=== PATIENT | female | born 1980 | race Caucasian/White ===

== ENCOUNTER 2017-03-13 19:38 | Emergency (ER) | payer OTHER ==
[2017-03-13] MEDS ORDERED: Albuterol/Ipratropium NEB.SOL* Albuterol 2.5 MG/Ipratropium 0.5 MG 3 ML INH ONE (19:59)
--- NOTE | 2017-03-13 20:03 | ED ---
Respiratory - HPI Summary HPI Summary: 36-year-old female presents with shortness of breath for 2 days she admits to a productive cough. She has occasional chest pain with the cough. She denies any abdominal pain muscle fatigue. She has been having subjective fevers but she's been taking ibuprofen for. She denies any nausea or vomiting. She denies any sore throat congestion or ear pain. she denies any headache. History of von Willebrand's and no one is sick at home. She gets bronchitis once a year and normal gets a zpack. She denies any pain or swelling in her calf muscles. - History of Current Complaint Chief Complaint: EDUpperRespComplaint Stated Complaint: COUGH/WHEEZING Time Seen by Provider: 03/13/17 19:47 Pain Intensity: 0 - Allergy/Home Medications Allergies/Adverse Reactions: Allergies Allergy/AdvReac Type Severity Reaction Status Date / Time NSAIDs Allergy Severe Bleeding Verified 10/25/15 07:52 PMH/Surg Hx/FS Hx/Imm Hx Endocrine/Hematology History: Denies: Hx Anticoagulant Therapy - But offers history of vonWillebrand's, Hx Diabetes, Hx Thyroid Disease Cardiovascular History: Denies: Hx Hypertension Respiratory History: Denies: Hx Asthma, Hx Chronic Obstructive Pulmonary Disease (COPD) GI History: Denies: Hx Ulcer - Cancer History Cancer Type, Location and Year: Cervical Cancer 2003 - Surgical History Surgery Procedure, Year, and Place: appy. shoulder. eye nerve repair. T&A. tubes in ears. Infectious Disease History: No Infectious Disease History: Denies: Hx Clostridium Difficile, Hx Hepatitis, Hx Human Immunodeficiency Virus (HIV), Hx of Known/Suspected MRSA, Traveled Outside the [place] in Last 30 Days - Family History Known Family History: Positive: Blood Disorder - Social History Alcohol Use: Occasionally Substance Use Type: Reports: None Smoking Status (MU): Light Every Day Tobacco Smoker Type: Cigarettes Amount Used/How Often: 3 daily Review of Systems Positive: Fever Negative: Chest Pain Positive: Shortness Of Breath, Cough Negative: Abdominal Pain All Other Systems Reviewed And Are Negative: Yes Physical Exam Triage Information Reviewed: Yes Vital Signs On Initial Exam: Initial Vitals Temp Pulse Resp BP Pulse Ox 97.7 F 96 16 119/70 100 03/13/17 19:40 03/13/17 19:40 03/13/17 19:40 03/13/17 19:40 03/13/17 19:40 Vital Signs Reviewed: Yes Appearance: Positive: Well-Appearing Skin: Positive: Warm, Dry Head/Face: Positive: Normal Head/Face Inspection Eyes: Positive: Normal, EOMI, MO, Conjunctiva Clear ENT: Positive: Normal ENT inspection, Pharynx normal, TMs normal Neck: Positive: Supple, Nontender, No Lymphadenopathy Respiratory/Lung Sounds: Positive: Breath Sounds Present, Wheezes Cardiovascular: Positive: Normal, RRR Abdomen Description: Positive: Nontender, Soft Bowel Sounds: Positive: Present Musculoskeletal: Positive: Normal Neurological: Positive: Normal Psychiatric: Positive: Normal Diagnostics - Vital Signs Vital Signs Temp Pulse Resp BP Pulse Ox 03/13/17 19:40 97.7 F 96 16 119/70 100 - Laboratory Lab Statement: Any lab studies that have been ordered have been reviewed, and results considered in the medical decision making process. - Radiology chest Xray Interpretation: No Acute Changes Radiology Interpretation Completed By: Radiologist Re-Evaluation - Re-Evaluation First Eval Re-Evaluation Time: 08:00 Change: Improved Comment: no wheezing heard Disposition - Course Course Of Treatment: 36-year-old female presents with shortness of breath for 2 days she admits to a productive cough. She has occasional chest pain with the cough. She denies any abdominal pain muscle fatigue. She has been having subjective fevers but she's been taking ibuprofen for. She denies any nausea or vomiting. She denies any sore throat congestion or ear pain. she denies any headache. History of von Willebrand's and no one is sick at home. She gets bronchitis once a year and normal gets a zpack. on exam has wheezes present. chest xray normal. will treat with prednisone and inhaler. patient understand and agrees with plan. - Differential Dx - Cardiopulmonary Differential Diagnoses - Cardiopulmonary: Bronchitis, Influenza, Lower Resp Infection - Diagnoses Provider Diagnoses: Bronchitis Discharge - Discharge Plan Condition: Good Disposition: HOME Prescriptions: Levalbuterol HFA INHALER* [Xopenex Hfa Inhaler*] 1 puff INH Q4H PRN #1 mdi PRN Reason: Shortness Of Breath predniSONE TAB* [Deltasone TAB*] 50 mg PO DAILY #4 tab Patient Education Materials: Acute Bronchitis (ED) Referrals: Non Staff,Doctor [Primary Care Provider] - Additional Instructions: Use inhaler one puff every 4 hours for cough as needed Take steroid once a day for 5 days Use saline in the nose for nasal congestion Use humidifier or place warm bowls of water around the room for cough Cough can last up to 4 weeks Follow up with primary care physician in 5 days Return to ED if develop any new or worsening symptoms
[2017-03-13] MEDS ORDERED: Levalbuterol 1.25MG/0.5ML NEB ONE (20:08)
[2017-03-13] MEDS ORDERED: Levalbuterol 1.25MG/0.5ML NEB INH ONE (20:12)
--- NOTE | 2017-03-13 21:13 | RAD ---
HISTORY: Cough COMPARISONS: January 15, 2015 VIEWS: 4: Frontal dual-energy and lateral views of the chest. FINDINGS: CARDIOMEDIASTINAL SILHOUETTE: The cardiomediastinal silhouette is normal. FARIDA: The farida are normal. PLEURA: The costophrenic angles are sharp. No pleural abnormalities are noted. LUNG PARENCHYMA: The lungs are clear. ABDOMEN: The upper abdomen is clear. There is no subphrenic gas. BONES AND SOFT TISSUES: No bone or soft tissue abnormalities are noted. OTHER: None. IMPRESSION: NO ACTIVE CARDIOPULMONARY DISEASE.
[2017-03-13] MEDS ORDERED: Levalbuterol HFA INHALER* 1 PUFF MDI INH ONE (21:17)
[2017-03-13] MEDS ORDERED: predniSONE TAB* 20 MG PO ONE (21:17)
[2017-03-13 21:35] VITALS: BP 101/60
== END 2017-03-13 21:35 | disposition home or self-care (01) ==
LOC: ED 19:38
DX: J40 Bronchitis, not specified as acute or chronic (principal); R05 Cough; R06.2 Wheezing; R06.02 Shortness of breath; F17.210 Nicotine dependence, cigarettes, uncomplicated
CPT/HCPCS: 71046; 94640; 99282; A9270-GY; J7512

== ENCOUNTER 2017-06-17 17:45 | Emergency (ER) | payer OTHER ==
[2017-06-17 18:02] VITALS: BP 110/74
--- NOTE | 2017-06-17 18:21 | RAD ---
HISTORY: Left ankle pain, injury COMPARISONS: None VIEWS: 3, Frontal, lateral, and oblique views of the left ankle FINDINGS: BONE DENSITY: Normal. BONES: There is no displaced fracture. JOINTS: There is no arthropathy. ALIGNMENT: There is no dislocation. SOFT TISSUES: Unremarkable. OTHER FINDINGS: None. IMPRESSION: NO ACUTE OSSEOUS INJURY. IF SYMPTOMS PERSIST, RECOMMEND REPEAT IMAGING.
--- NOTE | 2017-06-17 18:47 | UC ---
Lower Extremity/Ankle HPI - HPI Summary HPI Summary: 37 year old female with ankle pain. while at work on smoke break tripped and rolled ankle about 1230 . did not hit hed. no other trauma. worke the rest of her shift i asked if work cmp and she denied - History of Current Complaint Chief Complaint: UCLowerExtremity Stated Complaint: ANKLE INJURY Time Seen by Provider: 06/17/17 17:53 Hx Obtained From: Patient Hx Last Menstrual Period: 05/16/2017 Onset/Duration: Sudden Onset Severity Initially: Mild Severity Currently: Moderate Pain Intensity: 6 Aggravating Factor(s): Standing, Ambulation Alleviating Factor(s): Rest, Elevation Able to Bear Weight: Yes - Allergies/Home Medications Allergies/Adverse Reactions: Allergies Allergy/AdvReac Type Severity Reaction Status Date / Time NSAIDS (Non-Steroidal Allergy Bleeding Verified 06/17/17 18:02 Anti-Inflamma Home Medications: Home Medications Ibuprofen [Advil] 200 mg PO 06/17/17 [History] PMH/Surg Hx/FS Hx/Imm Hx Previously Healthy: Yes Other History Of: Negative For: Anticoagulant Therapy - But offers history of vonWillebrand's - Surgical History Surgical History: Yes Surgery Procedure, Year, and Place: appy. shoulder. eye nerve repair. T&A. tubes in ears. - Family History Known Family History: Positive: Blood Disorder - Social History Occupation: Employed Full-time - rehab nurse Alcohol Use: Occasionally Substance Use Type: None Smoking Status (MU): Light Every Day Tobacco Smoker Type: Cigarettes Amount Used/How Often: 3 daily Household Exposure Type: Cigarettes - Immunization History Most Recent Influenza Vaccination: 2013 Review of Systems Musculoskeletal: Arthralgia, Decreased ROM Is Patient Immunocompromised?: No All Other Systems Reviewed And Are Negative: Yes Physical Exam Triage Information Reviewed: Yes Appearance: Well-Appearing, No Pain Distress, Well-Nourished Vital Signs: Initial Vital Signs Temp 97.9 F 06/17/17 17:51 Pulse 73 06/17/17 17:51 Resp 16 06/17/17 17:51 BP 110/74 06/17/17 17:51 Pulse Ox 99 06/17/17 17:51 Vital Signs Reviewed: Yes ENT: Positive: Hearing grossly normal Musculoskeletal Exam: Normal Musculoskeletal: Positive: Strength Intact, ROM Intact, No Edema, Other: - neg homans. strength ankle 5/5 sensation intact FROM actively benign exam otherwise Neurological Exam: Normal Psychological Exam: Normal Skin Exam: Normal Skin: Positive: Other - left lateral malloelus tender to palpation and early bruising start to set in . neg homans. cap refill normal Diagnostics - Laboratory Diagnostic Studies Completed/Ordered: neg xray read by rads Lower Extremity Course/Dx - Course Course Of Treatment: OOW note. RICE. NSAIDs. If Sx persist then return for more imaging - Differential Dx/Diagnosis Differential Diagnosis/HQI/PQRI: Fracture (Closed), Sprain, Strain Provider Diagnoses: left ankle sprain Discharge - Sign-Out/Discharge Documenting (check all that apply): Discharge/Admit/Transfer - Discharge Plan Condition: Good Disposition: HOME Patient Education Materials: Ankle Sprain (ED) Forms: *Work Release Referrals: No Primary Care Phys,NOPCP [Primary Care Provider] - 3 Days Additional Instructions: IMPRESSION: NO ACUTE OSSEOUS INJURY. IF SYMPTOMS PERSIST, RECOMMEND REPEAT IMAGING. No fracture present - Billing Disposition and Condition Condition: GOOD Disposition: HOME
== END 2017-06-17 18:45 | disposition home or self-care (01) ==
LOC: UCEAST 17:45
DX: S93.402A Sprain of unspecified ligament of left ankle, initial encounter (principal); W18.43XA Slipping, tripping and stumbling without falling due to stepping from one level to another, initial encounter; Y93.9 Activity, unspecified; Y92.9 Unspecified place or not applicable; Y99.0 Civilian activity done for income or pay; D68.0 Von Willebrand disease; Z88.6 Allergy status to analgesic agent; F17.210 Nicotine dependence, cigarettes, uncomplicated
CPT/HCPCS: 99213; G0463

== ENCOUNTER 2017-11-05 10:38 | Day surgery (SDC) | payer OTHER ==
[~2017-11-05 10:38] MED LIST: Buffered Lidocaine 0.9% SYRIN* 5 ML/SYR SYRINGE INTRADERM ONE; Famotidine IV* 10 MG/ML 2 ML (20 mg) IV ONE
[2017-11-05] MEDS ORDERED: ceFAZolin 2 GM in NS PREMIX(*) 2 GM/100 ML BAG IVPB ONE (10:46)
[2017-11-05] MEDS ORDERED: Famotidine IV* 10 MG/ML 2 ML (20 mg) ONE (10:46)
[2017-11-05] MEDS ORDERED: Dexamethasone IV* 4 MG/ML 5 ML VIAL (20 MG) ONE (11:55)
[2017-11-05] MEDS ORDERED: Lidocaine 1% INJ* 10 MG/ML 30 ML SDV ONE (11:55)
[2017-11-05] MEDS ORDERED: Bupivacaine 0.25% SDV PF* 10 ML VIAL INJ ONE (11:55)
[2017-11-05] MEDS ORDERED: Midazolam* 1 MG/ML 5 ML VIAL (5 MG) ONE (11:58)
[2017-11-05] MEDS ORDERED: DiMENhydriNATE IV* 50 MG/ML VIAL IV PUSH PRN (12:03)
[2017-11-05] MEDS ORDERED: HYDROmorphone INJ1* 1 MG/ML SYRINGE IV PRN (12:03)
[2017-11-05] MEDS ORDERED: oxyCODONE/Acetamin 5/325 MG* TAB PO PRN (12:03)
[2017-11-05] MEDS ORDERED: Naloxone* 0.4 MG/ML 1 ML VIAL IV PRN (12:03)
[2017-11-05] MEDS ORDERED: fentaNYL* 50 MCG/ML 2 ML VIAL (100 MCG VIAL) ONE (12:22)
[2017-11-05] MEDS ORDERED: Propofol* 10 MG/ML 20 ML BTL IV PUSH ONE ×2 (12:46→13:28)
[2017-11-05] MEDS ORDERED: Ondansetron INJ* 2 MG/ML VIAL ONE (12:46)
[2017-11-05] MEDS ORDERED: Lidocaine 2% PF * 5 ML VIAL ONE (12:46)
[2017-11-05 14:47] VITALS: BP 105/61
--- NOTE | 2017-11-05 14:50 | RAD ---
HISTORY: s/p halluxvalgus repair COMPARISONS: None VIEWS: 2 , Frontal and lateral views of the left foot FINDINGS: BONE DENSITY: Normal. BONES: The patient is status post osteotomy of the first metatarsal with fixation screw. There is no appreciable hardware failure or osteolysis. JOINTS: There is no arthropathy. ALIGNMENT: There is no dislocation. SOFT TISSUES: There is post surgical change to the soft tissues. OTHER FINDINGS: None. IMPRESSION: STATUS POST FIRST METATARSAL OSTEOTOMY AND FIXATION
--- NOTE | 2017-11-06 10:55 | OP ---
DATE OF OPERATION: 11/05/17 - [facility] DATE OF : 80 SURGEON: Brendon Delvalle DPM ANESTHESIA: MAC local. PRE-OP DIAGNOSIS: Left hallux valgus. POST-OP DIAGNOSIS: Left hallux valgus. OPERATIVE PROCEDURE: Left hallux valgus repair. ESTIMATED BLOOD LOSS: Less than 10 cc. IV FLUIDS: LR 1000 cc. DRAINS: None. SPECIMENS: Bone from the left first metatarsal. DESCRIPTION OF PROCEDURE: The patient was taken to the operating room, was placed in a supine position. Time-out was called and OR team agreed. The left foot was then blocked with 10 cc of 1% lidocaine plain in a Snowden block fashion at the base of the left first metatarsal. The foot was then prepped and draped in a sterile manner. The left foot was exsanguinated with an Esmarch bandage and the cuff was then inflated to 250 mmHg. Attention was then paid to the left first metatarsophalangeal joint where I made a linear incision. This was followed by sharp and blunt dissection with a #15 blade and Snowden scissors from the skin, from epidermis, dermis, subcutaneous tissue, deep fascia and then the capsule. Once the capsule was reached, I then made a linear incision over the capsule. It was followed by dissection down to the periosteum. The periosteum was lifted off the bone and the collateral ligaments of the first metatarso- phalangeal joint was then transected as well. This effectively freed up the joint. I was able to look into the articular cartilage of the left first metatarsal and found them out to be a quality and condition. I then proceeded to remove the dorsal medial eminence of the left first metatarsal head with the sagittal saw. This was followed by chevron-type osteotomy at the metaphyseal and diaphyseal region of the left first metatarsal. Once the osteotomy was completed, I then took the capital fragment and laterally translated it and then impacted it into the proximal fragment. This effectively reduced the intermetatarsal angle and brought the first metatarsophalangeal joint into alignment and made it congruent from a subluxed joint. I went ahead and fixated the capital fragment with a cannulated screw from the Andel set. I used a 3.0 mm bone screw 15 mm in length and fixated the metatarsal head with that. The fixation was checked with the C-arm fluoroscopy. Once it was determined that adequate fixation was achieved, I then irrigated the site and closed that in a layered anatomical fashion. Once it was fully closed, I injected it with 8 cc of 1% Marcaine plain as well as 8 mg per 2 cc of dexamethasone phosphate. After I completed the procedure, the cuff was deflated. The foot was placed in a dry sterile dressing. The patient was taken to Recovery in stable condition and was later discharged in stable condition as well. [id number]/[facility] #: [id number] JAYLIN
== END 2017-11-05 14:51 | disposition home or self-care (01) ==
LOC: OR 10:38
PROVIDERS: ATTEND Podiatrist
DX: M20.12 Hallux valgus (acquired), left foot (principal); Z87.891 Personal history of nicotine dependence; D68.0 Von Willebrand disease
CPT/HCPCS: 81025; 88304; 88311; C1713; C1776; J0690; J1100; J2250; J2405; J2704; J3010; J3490

== ENCOUNTER 2018-07-14 15:29 | Emergency (ER) | payer OTHER ==
[2018-07-14 16:38] VITALS: BP 129/78
== END 2018-07-14 17:46 | disposition left against medical advice (07) ==
LOC: ED 15:29
DX: R11.10 Vomiting, unspecified (principal); Z53.21 Procedure and treatment not carried out due to patient leaving prior to being seen by health care provider

== ENCOUNTER 2018-10-24 11:57 | Emergency (ER) | payer OTHER ==
[2018-10-24 12:08] VITALS: BP 121/59
--- NOTE | 2018-10-24 12:17 | UC ---
Back Pain HPI - HPI Summary HPI Summary: 38 yo female presents with low back pain. She tells me that 2 days ago she was with her friend and her friend had a syncopal episode - pt caught her friend on the way down to the ground and felt a pull in her lower back. Pt's lower back has been painful since that time. She works as a rehab nurse at a local longterm and did work yesterday and noted that her pain was worse after working all day. She has been taking ibuprofen with mild relief - even though she admits that she knows she should not be taking this due to her vonwillebrand disease. She denies radiation of pain, numbness, tingling, abdominal pain, dysuria, saddle anestheisa, or loss of bowel/bladder control. - History of Current Complaint Chief Complaint: UCBackPain Stated Complaint: BACK INJURY Time Seen by Provider: 10/24/18 12:17 Hx Obtained From: Patient Hx Last Menstrual Period: 10/12/18 Onset/Duration: Sudden Onset Severity Initially: Moderate Severity Currently: Moderate Pain Intensity: 7 Pain Scale Used: 0-10 Numeric - Allergies/Home Medications Allergies/Adverse Reactions: Allergies Allergy/AdvReac Type Severity Reaction Status Date / Time NSAIDS (Non-Steroidal AdvReac Bleeding Verified 10/24/18 12:09 Anti-Inflamma PMH/Surg Hx/FS Hx/Imm Hx - Additional Past Medical History Additional PMH: von willebrand Respiratory History: Asthma Other History Of: Negative For: Anticoagulant Therapy - But offers history of vonWillebrand's - Surgical History Surgical History: Yes Surgery Procedure, Year, and Place: appy. shoulder. eye nerve repair. T&A. tubes in ears. LEEP procedure - Family History Known Family History: Positive: Blood Disorder - Social History Occupation: Employed Full-time Lives: With Family Alcohol Use: Occasionally Substance Use Type: None Smoking Status (MU): Former Smoker Type: Cigarettes Amount Used/How Often: 3 daily When Did the Patient Quit Smoking/Using Tobacco: 8 months ago Household Exposure Type: Cigarettes - Immunization History Most Recent Influenza Vaccination: 2012 Review of Systems All Other Systems Reviewed And Are Negative: No Constitutional: Positive: Negative Skin: Positive: Negative Respiratory: Positive: Negative Cardiovascular: Positive: Negative Neurovascular: Positive: Negative Musculoskeletal: Positive: Other: - Low back pain Neurological: Positive: Negative Psychological: Positive: Negative Physical Exam - Summary Physical Exam Summary: GENERAL: NAD. WDWN. No pain distress. SKIN: No rashes, sores, lesions, or open wounds. NECK: Supple. FROM. Nontender. No lymphadenopathy. CHEST: CTAB. No r/r/w. No accessory muscle use. Breathing comfortably and in no distress. CV: RRR. Without m/r/g. Pulses intact. Cap refill <2seconds MSK: TTP over lumbar paraspinal muscles. Pain with flexion and extension of spine. Negative SLR b/l. Strength 5/5 B/L LEs including dorsiflexion and plantar flexion. FROM B/L LEs. No edema. NEURO: Alert. Sensations intact B/L LEs L3-S1. Reflexes intact PSYCH: Age appropriate behavior. Triage Information Reviewed: Yes Vital Signs: Initial Vital Signs Temp 98 F 10/24/18 12:05 Pulse 89 10/24/18 12:05 Resp 16 10/24/18 12:05 BP 121/59 10/24/18 12:05 Pulse Ox 99 10/24/18 12:05 Vital Signs Reviewed: Yes Diagnostics - Radiology Thoracic Radiology Interpretation Completed By: Radiologist Summary of Radiographic Findings: IMPRESSION: UNREMARKABLE RADIOGRAPHS OF THE THORACIC SPINE. Lumbar Radiology Interpretation Completed By: Radiologist Summary of Radiographic Findings: IMPRESSION: MILD DEGENERATIVE DISC DISEASE. Back Pain Course/Dx - Course Course Of Treatment: XRs no acute process. Suspect muscle strain/spasm and will rx for Flexeril. Advised to avoid NSAIDs. Rest and apply heat to area of discomfort. f/u with PCP if symptoms do not improve within 1 week - Differential Dx/Diagnosis Provider Diagnosis: Low back pain Discharge ED - Sign-Out/Discharge Documenting (check all that apply): Patient Departure All imaging exams completed and their final reports reviewed: Yes - Discharge Plan Condition: Stable Disposition: HOME Prescriptions: Cyclobenzaprine TAB* [Flexeril 10 MG TAB*] 10 mg PO TID PRN #15 tab PRN Reason: spasm Patient Education Materials: Muscle Strain (ED) Forms: *Work Release Referrals: No Primary Care Phys,NOPCP [Primary Care Provider] - Additional Instructions: If you develop a fever, shortness of breath, chest pain, new or worsening symptoms - please call your PCP or go to the ED immediately. - Billing Disposition and Condition Condition: STABLE Disposition: Home - Attestation Statements Provider Attestation: Per institutional requirements, I have reviewed the chart, however, I was not consulted specifically or made aware of this patient by the midlevel provider. I did not personally evaluate, interact with , or disposition this patient.
== END 2018-10-24 13:25 | disposition home or self-care (01) ==
LOC: UCEAST 11:57
DX: M54.5 Low back pain (principal); J45.909 Unspecified asthma, uncomplicated; Z87.891 Personal history of nicotine dependence
CPT/HCPCS: 72070; 72110; 99212; G0463